=== PATIENT | male | born 1960 | race Caucasian/White ===

== ENCOUNTER 2019-06-05 11:37 | Day surgery (SDC) | payer BC ==
[2019-06-04 15:54] VITALS: BMI 22.2
[2019-06-05] MEDS ORDERED: Fentanyl 100 MCG/2 ML VIAL ONE (12:38)
[2019-06-05] MEDS ORDERED: PROPOFOL 200 MG/20 ML VIAL ONE (12:44)
[2019-06-05] MEDS ORDERED: Lidocaine 1% w/Epinephrine 1:100K 20 ML VIAL ONE (13:43)
[2019-06-05] MEDS ORDERED: Bacitracin Zinc Ointment 30 gm TUBE ONE (13:44)
[2019-06-05] MEDS ORDERED: Midazolam HCl 2 mg/2 ml Vial ONE (13:57)
[2019-06-05] MEDS ORDERED: HYDROcodone/Acetaminophen 5/325 mg Tablet ONE (16:01)
--- NOTE | 2019-06-05 18:25 | EKG ---
Test Reason : PREOP Blood Pressure : / mmHG Vent. Rate : 068 BPM Atrial Rate : 068 BPM P-R Int : 170 ms QRS Dur : 086 ms QT Int : 406 ms P-R-T Axes : 034 -23 072 degrees QTc Int : 431 ms Normal sinus rhythm Inferior infarct , age undetermined Abnormal ECG No previous ECGs available Confirmed by DR. Jose MERIDA ([id number]) on 06/05/2019 6:25:12 PM Referred By: Lin HAGER Confirmed By:DR. Jose MERIDA
--- NOTE | 2019-06-06 11:53 | OP ---
DATE OF PROCEDURE: 06/05/2019 PREOPERATIVE DIAGNOSIS: Left nasal basal cell carcinoma. POSTOPERATIVE DIAGNOSIS: Left nasal basal cell carcinoma. PROCEDURES PERFORMED: 1. Wide local excision of left nose basal cell carcinoma at 2.5 cm2. 2. Local regional flap closure (bi-lobed flap closure), greater than 4 cm2. ESTIMATED BLOOD LOSS: 10 mL. COMPLICATIONS: None. ANESTHESIA: TIVA. DESCRIPTION OF PROCEDURE: The patient was taken to the operating room and placed supine on the table. TIVA anesthesia was obtained by the Anesthesia Staff. 1% lidocaine with 1:100,000 epinephrine was injected over the left nasal bridge and the anticipated bi-lobed flap was marked out. The specimen was removed using a 15 blade, taking an 8-mm margin around the basal cell carcinoma. Frozen section margins cleared the area for any residual cancer. Following this, the bi-lobed flap were elevated and was rotated and transposed into its new anatomic position. The subcuticular layers were closed using 4-0 and 5-0 Monocryl. Skin was closed using 4-0 and 5-0 Prolene. The patient tolerated the procedure well. Job ID: [id number]
== END 2019-06-05 16:15 | disposition home or self-care (01) ==
LOC: SDC 11:37
PROVIDERS: ATTEND Otolaryngology Plastic Surgery within the Head & Neck
PROC: 0HB1XZZ Excision of Face Skin, External Approach (ICD-10-PCS; principal; 2019-06-05)
PROC: 0HX1XZZ Transfer Face Skin, External Approach (ICD-10-PCS; principal; 2019-06-05)
DX: C44.311 Basal cell carcinoma of skin of nose (principal); Z95.1 Presence of aortocoronary bypass graft
CPT/HCPCS: 88305; 88331; 93005; 93010; J2001; J2250; J2704; J3010